=== PATIENT | female | born 1950 | race Caucasian/White ===

== ENCOUNTER 2024-02-26 21:16 | Emergency (ER) | payer MEDICARE, OTHER, SELFPAY ==
[2024-02-26] VITALS (9 sets, daily range): BP systolic 187–216; BP diastolic 84–110; PULSE 83–118; RESP 9–18; TEMP 36.3; O2SAT 92–99; BMI 39.4
--- NOTE | 2024-02-26 21:44 | DI.RAD.S_ITS ---
PROCEDURE: XR CHEST 1V INDICATIONS: chest pain TECHNIQUE: One view of the chest was acquired. COMPARISON: None. FINDINGS: Surgical changes and devices: None. Lungs and pleura: No dense consolidation or pleural effusion. Mediastinum: Cardiomegaly Bones and chest wall: Degenerative changes. Calcific tendinopathy on the right partially seen IMPRESSION: No acute radiographic abnormality on this limited single view study. Cardiomegaly. Dictated by: Wisam Cabral M.D. on 02/26/2024 at 22:25 Approved by: Wisam Cabral M.D. on 02/26/2024 at 22:26
--- NOTE | 2024-02-26 21:44 | EKG_ITS ---
[address] [address] Test Date: 2024-02-26 Pat Name: Marsha Billings Department: [facility] Room: Gender: Female Tapeman: STEPHEN : 1950 Requested By: Order Number: [id number] Reading MD: Tan Poe Measurements Intervals Williamson Rate: 83 P: VA: QRS: -26 QRSD: 98 T: 155 QT: 380 QTc: 446 Interpretive Statements Atrial fibrillation Moderate voltage criteria for LVH, may be normal variant ( R in aVL , Mau product ) Nonspecific T wave abnormality Electronically Signed On 02-27-2024 18:33:18 PDT by Tan Poe
[2024-02-26 22:19] LABS: Add Manual Diff / Slide Review NO; Basophils Absolute Auto 100 /uL (0-100); Eosinophils Absolute Auto 300 /uL (0-450); Eosinophils Percent Auto 3.4 % (2-4); Hematocrit 43.6 % (36-46); Hemoglobin 14.8 g/dL (12.0-16.0); Lymphocytes Absolute Auto 2400 /uL (1100-4500); Lymphocytes Percent Auto 22.9 % (25-40); Mean Corpuscular Hemoglobin 31.3 PG (26-34); Monocytes Absolute Auto 1000 /uL (0-900); Monocytes Percent Auto 9.9 % (3-14); Neutrophils Absolute Auto 6500 /uL (1500-7000); Neutrophils Percent Auto 62.8 % (50-75); Platelet Count 223 X10^3/uL (150-400); Red Blood Cell Count 4.73 X10^6/uL (4.0-5.2); Red Cell Distribution Width 15.1 % (11.6-14.8); White Blood Cell Count 10.3 X10^3/uL (4.5-11.0)
[2024-02-26 22:27] LABS: INR 1.2 (0.9-1.3); Prothrombin Time 14.3 SECONDS (9.4-12.5)
[2024-02-26 22:30] LABS: PTT Partial Thromboplastin Tim 39 SECONDS (25.1-36.5)
--- NOTE | 2024-02-26 22:30 | ED.ARRPALP ---
HPI - Arrhythmia/Palpitations General Chief Complaint: Arrhythmia/Palpitations Stated Complaint: Heart issues Time Seen by Provider: 02/26/24 22:03 Source: patient Mode of arrival: Ambulatory History of Present Illness HPI narrative: 73-year-old female with history of AFib on Eliquis, hypertension, hyperlipidemia, diabetes presents by private vehicle from home for elevated pulse rate. Patient states that she has had no symptoms, but has an aura ring and a smart watch, which have noted heart rates over 100 intermittently throughout the last several days. Patient states that she has been compliant with all of her medications as prescribed. Related Data Previous Rx's Medication Instructions Recorded amlodipine 5 mg tablet 5 mg PO DAILY #30 tabs 02/26/24 amlodipine 5 mg tablet 5 mg PO DAILY #30 tabs 02/26/24 Exam Initial Vital Signs Initial Vital Signs: Vital Signs Temperature 97.3 F L 02/26/24 21:21 Pulse Rate 103 H 02/26/24 21:21 Respiratory Rate 18 02/26/24 21:21 Blood Pressure 216/110 H 02/26/24 21:21 Pulse Oximetry 99 02/26/24 21:21 Oxygen Delivery Method Nasal Cannula 02/26/24 21:21 Oxygen Flow Rate 3 02/26/24 21:21 Const: Awake, alert, no acute distress, nontoxic appearing Cardiac: Tachycardia, irregularly irregular rhythm RESP: unlabored, clear bilaterally, no wheezing GI: Soft, nontender, nondistended, no rebound, no guarding MSK: Atraumatic, full range of motion, pulses equal Skin: Warm, Dry, intact, no rashes Neuro: AO x3, CN II-XII grossly intact, moves all extremities Course Orders Ordered: Discontinued Medications Aspirin (Aspirin 81 Mg Chew Tab) 324 mg PO NOW ONE Stop: 02/26/24 21:45 Last Admin: 02/26/24 22:18 Dose: Not Given Documented By: REBECCA Clonidine HCl (Clonidine 0.1 Mg Tablet) 0.2 mg PO NOW ONE Stop: 02/26/24 23:03 Last Admin: 02/26/24 23:48 Dose: 0.2 mg Documented By: SAEID Vital Signs Vital signs: Vital Signs - 8 hr 02/26/24 21:21 02/26/24 21:59 02/26/24 22:00 Temperature 97.3 F L Pulse Rate 103 H 118 H 105 H Respiratory Rate 18 13 9 L Blood Pressure 216/110 H Pulse Oximetry 99 96 96 Oxygen Delivery Method Nasal Cannula Oxygen Flow Rate 3 02/26/24 22:02 02/26/24 22:02 02/26/24 22:30 Temperature Pulse Rate 100 H Respiratory Rate 12 Blood Pressure 187/105 H 205/106 H Pulse Oximetry 96 Oxygen Delivery Method Oxygen Flow Rate 02/26/24 22:30 Temperature Pulse Rate 88 Respiratory Rate 18 Blood Pressure Pulse Oximetry 96 Oxygen Delivery Method Oxygen Flow Rate MDM - Arrhythmia/Palpitations Differential Diagnosis Differential diagnosis: Likely palpitations, sinus tachycardia and artial fibrillation Lab Data 02/26/24 22:08 02/26/24 22:08 Labs: Lab Results 02/26/24 Range/Units 22:08 WBC 10.3 (4.5-11.0) X10^3/uL RBC 4.73 (4.0-5.2) X10^6/uL Hgb 14.8 (12.0-16.0) g/dL Hct 43.6 (36-46) % MCV 92.0 (80-100) fL MCH 31.3 (26-34) PG MCHC 34.0 (30-36) % RDW 15.1 H (11.6-14.8) % Plt Count 223 (150-400) X10^3/uL Neut % (Auto) 62.8 (50-75) % Lymph % (Auto) 22.9 L (25-40) % [place] % (Auto) 9.9 (3-14) % Eos % (Auto) 3.4 (2-4) % Baso % (Auto) 1.0 (0-2) % Neut # (Auto) 6500 (4244-7248) /uL Lymph # (Auto) 2400 (9570-3584) /uL [place] # (Auto) 1000 H (0-900) /uL Eos # (Auto) 300 (0-450) /uL Baso # (Auto) 100 (0-100) /uL PT 14.3 H (9.4-12.5) SECONDS INR 1.2 (0.9-1.3) APTT 39 H (25.1-36.5) SECONDS Sodium 141 (137-145) mmol/L Potassium 3.5 (3.4-5.1) mmol/L Chloride 102 (98-107) mmol/L Carbon Dioxide 30 (22-32) mmol/L BUN 22 H (7-17) mg/dL Creatinine 0.80 (0.52-1.04) mg/dL Estimated GFR > 60 (>60) mL/min BUN/Creatinine Ratio 27.5 H (6-22) Glucose 132 H (80-110) mg/dL Calcium 9.2 (8.4-10.2) mg/dL Magnesium 2.0 (1.6-2.3) mg/dL Total Bilirubin 2.7 H (0.2-1.3) mg/dL AST 33 (14-36) IU/L ALT 29 (<35) IU/L Alkaline Phosphatase 92 (38-126) U/L Total Creatine Kinase 49 (30-135) U/L Troponin I < 0.012 (0.01-0.034) ng/mL NT-Pro-B Natriuret Pep 227 H (<125) pg/mL Total Protein 8.4 H (6.3-8.2) g/dL Albumin 4.4 (3.5-5.0) g/dL Globulin 4.0 (1.7-4.1) g/dL Albumin/Globulin Ratio 1.1 (1.0-2.8) Lipase 208 (23-300) U/L Imaging Data Chest x-ray: Radiologist's Impresson: PROCEDURE: XR CHEST 1V INDICATIONS: chest pain TECHNIQUE: One view of the chest was acquired. COMPARISON: None. FINDINGS: Surgical changes and devices: None. Lungs and pleura: No dense consolidation or pleural effusion. Mediastinum: Cardiomegaly Bones and chest wall: Degenerative changes. Calcific tendinopathy on the right partially seen IMPRESSION: No acute radiographic abnormality on this limited single view study. Cardiomegaly. Dictated by: Wisam Cabral M.D. on 02/26/2024 at 22:25 Approved by: Wisam Cabral M.D. on 02/26/2024 at 22:26 ECG Data Interpretation: Atrial fibrillation at 83 beats per minute, no ST T wave changes, QTC 446 MDM Narrative Medical decision making narrative: Well-appearing patient with asymptomatic tachycardia. Hemodynamically stable, patient heart rate variable between 80 and 115 beats per minute, in atrial fibrillation. Patient reports compliance with her anticoagulation. She states that she is relatively new to the area and is looking for a primary care doctor, she has none established in the region currently. Laboratory work reviewed, no significant abnormalities identified. Electrolytes within normal limits, troponin undetectable. Chest x-ray negative for acute findings. Patient medicine list reviewed, she is on 50 mg of metoprolol daily, she was counseled to increase this dose to 75 mg daily. This will also help the patient's blood pressure, which has been elevated. If the increase in metoprolol does not improve blood pressure then a course of amlodipine sent to pharmacy of choice. Patient requested a cardiology referral number, which was provided. Patient is strongly encouraged to follow up with a PCP, which she states she will do Discharge Plan Departure Patient Disposition: Home Clinical Impression: Atrial fibrillation Instructions: DI for Atrial Fibrillation Activity Restrictions/Additional Instructions: Your laboratory work, EKG, and chest x-ray today are reassuring. I recommend increasing her metoprolol from 50 mg daily to 75 mg daily. In addition I am starting you on a low-dose blood pressure medication called amlodipine. Take this 1 time daily. Prescriptions: New amlodipine 5 mg tablet 5 mg PO DAILY Qty: 30 0RF amlodipine 5 mg tablet 5 mg PO DAILY Qty: 30 0RF Referrals: Arpit Narvaez MD [Physician] - Stand Alone Forms: Patient Portal/API
[2024-02-26 22:31] LABS: Alanine Aminotransferase 29 IU/L (<35); Albumin 4.4 g/dL (3.5-5.0); Albumin Globulin Ratio 1.1 (1.0-2.8); Alkaline Phosphatase 92 U/L (38-126); Aspartate Aminotransferase 33 IU/L (14-36); BUN Creatinine Ratio 27.5 (6-22); Bilirubin Total 2.7 mg/dL (0.2-1.3); Blood Urea Nitrogen 22 mg/dL (7-17); Calcium 9.2 mg/dL (8.4-10.2); Carbon Dioxide 30 mmol/L (22-32); Chloride 102 mmol/L (98-107); Creatine Kinase 49 U/L (30-135); Estimated Glomerular Filt Rate > 60 mL/min (>60); Glucose 132 mg/dL (80-110); HEMOLYSIS 23 (0-50); Lipase 208 U/L (23-300); Potassium 3.5 mmol/L (3.4-5.1); Sodium 141 mmol/L (137-145); Total Protein 8.4 g/dL (6.3-8.2)
[2024-02-26 22:43] LABS: NT-proBNP (BNP-Adult 18+) 227 pg/mL (<125); Troponin I < 0.012 ng/mL (0.01-0.034)
[2024-02-26] MEDS: cloNIDine 0.1 MG TABLET 0.2 MG PO (23:48)
== END 2024-02-26 23:55 | disposition home or self-care (01) ==
PROVIDERS: Emergency Provider Emergency Medicine
DX: I48.91 Unspecified atrial fibrillation (principal); Z79.01 Long term (current) use of anticoagulants; R00.0 Tachycardia, unspecified
CPT/HCPCS: 36415; 71045; 80053; 82550; 83690; 83735; 83880; 84484; 85025; 85610; 85730; 93005; 99284

== ENCOUNTER → 2024-06-02 08:03 | Outpatient (CLI) | payer MEDICARE, OTHER, SELFPAY ==
--- NOTE | 2024-06-02 08:04 | DI.ECHO.S_ITS ---
[facility]---------+ [facility] : : [address] : : [place] : : [id number] : : Phone: [phone] Echocardiogram Report + + :Name: CARL QUICK Study Date: 06/02/2024 Height: 64 in : :[facility] ReadingLocation: Weight: 230 lb : : Gender: Female BSA: 2.1 m2 : :: 1950 Age: 74 yrs BP: 138/75 mmHg: :Reason For Study: CORONARY ARTERY DISEASE : :Ordering Physician: KIT MCDONALD Performed By: Demi Garner : :Referring: KIT MCDONALD : + + Interpretation Summary 1. The left ventricular contractility is normal. Estimate ejection fraction is greater than 55% with no segmental wall motion abnormalities. No LVH. Unable to comment on diastolic function. 2. The right ventricular contractility is mildly compromised. 3. Biatrial enlargement noted. All other cardiac chambers are of normal size. 4. Mild mitral regurgitation. 5. Mild aortic insufficiency. 6. Mild tricuspid regurgitation with estimated pulmonary systolic artery pressures of 52 mmHg. 7. Mild pulmonic insufficiency. 8. No obvious intracardiac shunts. 9. No obvious right masses nor thrombi. 10. Normal right-sided filling pressures. Conclusion: Normal left ventricular systolic function with mildly compromised right ventricular systolic function. Mild valvular abnormalities noted with pulmonary hypertension. Procedure: A two-dimensional transthoracic echocardiogram with color flow and Doppler was performed. The study quality was technically adequate. There is no prior echocardiogram noted for this patient. The patient was in atrial fibrillation with heart rates between 60-72 bpm during the exam. Left Ventricle: The left ventricle is normal in size and wall thickness. The ejection fraction is estimated to be 55-60%. Diastolic function could not be accurately assessed due to atrial fibrillation. Right Ventricle: The right ventricle is grossly normal size. Right ventricular systolic function is mildly reduced. Atria: The left atrium is mildly dilated. The right atrium is mildly dilated. There is no Doppler evidence for an interatrial shunt. Mitral Valve: The mitral valve leaflets appear moderately thickened, but open well. There is mild mitral annular calcification. There is mild mitral regurgitation. Aortic Valve: The aortic valve is trileaflet. The aortic valve opens well. There is no aortic valve stenosis. There is mild aortic regurgitation. Tricuspid Valve: The tricuspid valve is normal in structure and function. There is mild tricuspid regurgitation. The right ventricular systolic pressure is estimated to be at least 52 mmHg based on an estimated right atrial pressure of 8 mm Hg. Pulmonic Valve: The pulmonic valve leaflets are thin and pliable; valve motion is normal. There is mild to moderate pulmonic regurgitation. Great Vessels: The aortic root is normal size. The dimensions of the ascending aorta are normal. The IVC is dilated (diameter is greater than 2.1 cm) yet it collapses greater than 50% with a sniff. This suggests a right atrial pressure of 8 mm Hg. Pericardium/ Pleura There is no pericardial effusion. There is no pleural effusion. MMode/2D Measurements & Calculations LVIDd: 5.1 cm LVOT diam: 2.2 cm LVIDs: 3.4 cm Ao root diam: 3.5 cm FS: 32.5 % asc Aorta Diam: 3.8 cm EPSS: 0.99 cm Ao Arch Diam (Prox Trans): 3.4 cm IVSd: 0.97 cm LVPWd: 1.00 cm LV brar. diameter/BSA (cm/m^2): 2.4 LV sys. diameter/BSA (cm/m^2): 1.6 LA A2 area: 24.9 cm2 RA long axis: 6.4 cm LA A4 area: 25.3 cm2 RA area: 25.1 cm2 LA length (vol): 6.9 cm RA vol: 84.2 ml LA vol: 77.7 ml RA : 40.6 ml/m2 LA vol index: 37.4 ml/m2 IVC diam: 2.6 cm RVD1 (basal): 4.0 cm TAPSE: 1.2 cm Doppler Measurements & Calculations Ao V2 max: 112.5 cm/sec LVOT Max Abner: 64.0 cm/sec Ao V2 mean: 81.8 cm/sec LV V1 max P.6 mmHg Ao max P.1 mmHg LV V1 VTI: 15.0 cm Ao mean P.9 mmHg RORY(I,D): 2.5 cm2 Ao V2 VTI: 24.0 cm RORY(V,D): 2.3 cm2 sev ratio: 0.62 RORY indexed to BSA (cm^2/m^2): 1.2 AI P1/2t: 534.0 msec AI dec slope: 217.6 cm/sec2 MV E max abner: 104.4 cm/sec TR max abner: 332.7 cm/sec MV A max abner: 1.3 cm/sec TR max P.3 mmHg MV E/A: 78.8 PA V2 max: 95.2 cm/sec Med Peak E' Abner: 6.4 cm/sec PA V2 mean: 61.2 cm/sec E/E' med: 16.3 PA mean P.7 mmHg Lat Peak E' Abner: 8.1 cm/sec PA pr(Accel): 48.2 mmHg E/E' lat: 13.0 E/e' average: 14.6 MV dec time: 0.21 sec SV(LVOT): 59.2 ml Reading Physician:
== END ==
PROVIDERS: PCP Nurse Practitioner Family; Referring Provider Internal Medicine; Visit Provider Internal Medicine
DX: I25.10 Atherosclerotic heart disease of native coronary artery without angina pectoris (principal); I08.3 Combined rheumatic disorders of mitral, aortic and tricuspid valves
CPT/HCPCS: 93306

== ENCOUNTER → 2024-12-29 15:46 | Outpatient (CLI) | payer MEDICARE, OTHER, SELFPAY ==
[2024-12-29 18:12] LABS: BUN Creatinine Ratio 21.5 (6-22); Blood Urea Nitrogen 17 mg/dL (7-17); Calcium 9.3 mg/dL (8.4-10.2); Carbon Dioxide 29 mmol/L (22-32); Chloride 101 mmol/L (98-107); Estimated Glomerular Filt Rate > 60 mL/min (>60); Glucose 92 mg/dL (70-99); HEMOLYSIS < 15 (0-50); Potassium 4.4 mmol/L (3.4-5.1); Sodium 140 mmol/L (137-145)
== END ==
PROVIDERS: PCP Nurse Practitioner Family; Referring Provider Internal Medicine Critical Care Medicine; Visit Provider Internal Medicine Critical Care Medicine
DX: J96.20 Acute and chronic respiratory failure, unspecified whether with hypoxia or hypercapnia (principal)
CPT/HCPCS: 36415; 80048; 99215

== ENCOUNTER → 2025-01-09 08:47 | Outpatient (CLI) | payer MEDICARE, OTHER, SELFPAY ==
--- NOTE | 2025-01-09 08:52 | DI.CT.S_ITS ---
PROCEDURE: CT ANGIO CHEST PE PROTOCOL INDICATIONS: Severe hypoxemia and tachycardia, eval for PE TECHNIQUE: After the administration of intravenous contrast, 2 mm thick sections acquired from the pulmonary apices to the posterior costophrenic angles. MIP reformats of the arterial vasculature were utilized. For radiation dose reduction, the following was used: automated exposure control, adjustment of mA and/or kV according to patient size. COMPARISON: None. FINDINGS: Image quality: Diagnostic. Pulmonary arteries: Pulmonary arteries are normal in size, and demonstrate no intraluminal filling defects to suggest central pulmonary embolism. Lower Neck: No enlarged lymph nodes. Thyroid: No thyroid nodules which require sonographic follow up, per consensus guidelines. Axillae: No enlarged lymph nodes. Chest Wall: Unremarkable. Bones: Unremarkable. Lungs and Pleura: No pneumothorax or pleural effusions. No consolidation or suspicious nodules. Heart: Heart size is normal. No pericardial effusion. Dense coronary artery vascular calcification Thoracic Vessels: No aortic aneurysm. Mediastinum and [place]: Mediastinal adenopathy. Largest subcarinal node 2.1 x 1.5 cm Esophagus: No wall thickening. No hiatal hernia. Upper Abdomen: Visualized upper abdomen solid organs and bowel loops appear normal. IMPRESSION: No evidence of pulmonary embolism, aortic dissection or aneurysm. Dense three- vessel coronary artery vascular calcification. No acute cardiopulmonary process. Approved by: Jong Ching M.D. on 01/09/2025 at 15:16
--- NOTE | 2025-01-09 08:52 | DI.ECHO.S_ITS ---
[place] +---------+ Hospital : : [address] : : [place] : : [id number] : : Phone: [phone] Echocardiogram Report + + :Name: CARL QUICK Study Date: 01/09/2025 Height: 64 in : :[facility] ReadingLocation: Weight: 230 lb : : Gender: Female BSA: 2.1 m2 : :: 1950 Age: 74 yrs BP: 144/78 mmHg: :Reason For Study: SOB : :Ordering Physician: ZHAO, : :KAREN Performed By: Kamla Cole : :Referring: KAREN CHURCHILL : + + Interpretation Summary 1. The left ventricular contractility is normal. Estimate ejection fraction greater than 55% with no segmental wall motion abnormalities. No LVH. Unable to comment on diastolic function. 2. The right ventricle contractility is normal. 3. Borderline left atrial enlargement. All cardiac chambers are of normal size. 4. Mild aortic insufficiency. 5. Trace to mild mitral regurgitation. 6. Trace to mild tricuspid regurgitation with estimated pulmonary systolic artery pressures of 32 mmHg. 7. Mild pulmonic insufficiency. 8. Prominent moderator band noted. 9. No obvious intracardiac shunts. 10. No hemodynamically significant pericardial effusion. 11. Low right-sided filling pressures. Conclusion: Normal biventricular systolic function with mild valvular insufficiencies. When compared with previous echocardiogram, there does appear to be improvement of the right ventricular contractility. Procedure: A two-dimensional transthoracic echocardiogram with color flow and Doppler was performed. The study quality was technically adequate. Comparison is made with the echocardiogram of 06-12-24. The heart rate ranged between 63-81 bpm during the study. Left Ventricle: The left ventricle is normal in size and wall thickness. The ejection fraction is estimated to be 55-60%. Diastolic function could not be accurately assessed due to unobtainable data. Right Ventricle: The right ventricle is mildly dilated. The right ventricular systolic function is normal. Atria: The left atrium is borderline dilated. Right atrial size is normal. The interatrial septum grossly appears intact with no obvious evidence for an atrial septal defect. Lipomatous hypertrophy of the interatrial septum is noted. Mitral Valve: The mitral valve leaflets appear mildly thickened, but open well. There is mild mitral annular calcification. Aortic Valve: The aortic valve is trileaflet. The aortic valve opens well. There is mild aortic regurgitation. Tricuspid Valve: The tricuspid valve leaflets are thin and pliable. There is trace tricuspid regurgitation. The right ventricular systolic pressure is estimated to be at least 32 mmHg based on an estimated right atrial pressure of 3 mm Hg. Pulmonic Valve: The pulmonic valve is not well seen, but is grossly normal. There is mild pulmonic regurgitation. Great Vessels: The aortic root is normal size. The ascending aorta is at the upper limits of normal in size. The aortic arch is normal in size. The IVC is of normal diameter and collapses greater than 50% with a sniff. This suggests a low right atrial pressure of 3 mm Hg. Pericardium/ Pleura There is no pericardial effusion. There is no pleural effusion. MMode/2D Measurements & Calculations LVIDd: 5.1 cm LVOT diam: 2.5 cm LVIDs: 3.5 cm Ao root diam: 3.7 cm FS: 31.7 % asc Aorta Diam: 4.1 cm EPSS: 0.69 cm Ao Arch Diam (Prox Trans): 3.0 cm IVSd: 1.0 cm LVPWd: 0.90 cm LV brar. diameter/BSA (cm/m^2): 2.5 LV sys. diameter/BSA (cm/m^2): 1.7 LA A2 area: 24.6 cm2 RA long axis: 6.7 cm LA A4 area: 29.0 cm2 RA area: 24.0 cm2 LA length (vol): 7.5 cm RA vol: 73.2 ml LA vol: 80.5 ml RA : 35.3 ml/m2 LA vol index: 38.8 ml/m2 IVC diam: 2.5 cm RVD1 (basal): 2.7 cm TAPSE: 1.2 cm Doppler Measurements & Calculations Ao V2 max: 114.6 cm/sec LVOT Max Abner: 72.4 cm/sec Ao V2 mean: 75.1 cm/sec LV V1 max P.1 mmHg Ao max P.3 mmHg LV V1 VTI: 18.5 cm Ao mean P.7 mmHg RORY(I,D): 3.4 cm2 Ao V2 VTI: 26.6 cm RORY(V,D): 3.1 cm2 sev ratio: 0.70 RORY indexed to BSA (cm^2/m^2): 1.7 MV E max abner: 118.3 cm/sec TR max abner: 268.3 cm/sec MV A max abner: 45.3 cm/sec TR max P.9 mmHg MV E/A: 2.6 PA V2 max: 80.0 cm/sec MV dec time: 0.24 sec PA V2 mean: 52.1 cm/sec PA mean P.3 mmHg PA pr(Accel): 25.9 mmHg SV(LVOT): 91.6 ml Reading Physician:DAMION
== END ==
PROVIDERS: PCP Nurse Practitioner Family; Referring Provider Internal Medicine Critical Care Medicine; Visit Provider Internal Medicine Critical Care Medicine
DX: J96.20 Acute and chronic respiratory failure, unspecified whether with hypoxia or hypercapnia (principal); I34.81 Nonrheumatic mitral (valve) annulus calcification; I35.1 Nonrheumatic aortic (valve) insufficiency; I37.1 Nonrheumatic pulmonary valve insufficiency; I25.10 Atherosclerotic heart disease of native coronary artery without angina pectoris; R59.0 Localized enlarged lymph nodes; R06.02 Shortness of breath
CPT/HCPCS: 71275; 93306; Q9967